=== PATIENT | female | born 1985 | race American Indian/Alaskan Native ===

== ENCOUNTER 2023-10-20 12:38 | Emergency (ER) | payer OTHER ==
[2023-10-20 13:28] LABS: BASOPHILS ABSOLUTE AUTO 0.1 K/mm3 (0.0-0.2); BASOPHILS PERCENT AUTO 0.5 % (0.0-1.0); EOSINOPHILS ABSOLUTE AUTO 0.1 K/mm3 (0.0-0.4); EOSINOPHILS PERCENT AUTO 0.5 % (0.0-6.0); HEMATOCRIT 26.5 % (37.0-47.0); HEMOGLOBIN 9.4 gm/dl (12.0-16.0); IMMATURE GRAN ABSOLUTE AUTO 0.14 K/mm3 (0.00-0.05); IMMATURE GRAN PERCENT AUTO 0.9 % (0.0-0.4); LYMPHOCYTES ABSOLUTE AUTO 0.7 K/mm3 (1.0-4.8); LYMPHOCYTES PERCENT AUTO 4.7 % (24.0-44.0); MEAN CORPUSCULAR HEMOGLOBIN 32.4 pg (28.0-32.0); MEAN CORPUSCULAR HGB CONC 35.5 g/dl (32.0-36.0); MEAN CORPUSCULAR VOLUME 91.4 fl (83.0-99.0); MEAN PLATELET VOLUME 9.8 fl (9.4-12.3); MONOCYTES ABSOLUTE AUTO 1.1 K/mm3 (0.0-0.8); MONOCYTES PERCENT AUTO 7.5 % (0.0-8.0); NEUTROPHILS ABSOLUTE AUTO 12.9 K/mm3 (1.8-7.7); NEUTROPHILS PERCENT AUTO 85.9 % (41.0-71.0); PLATELET COUNT,PLT 163 K/mm3 (150-400); WHITE BLOOD CELL COUNT,WBC 15.02 K/mm3 (3.9-11.3)
[2023-10-20 13:47] LABS: INR 1.9; PROTHROMBIN TIME 19.3 SECONDS (9.7-12.0)
[2023-10-20 13:58] LABS: A/G RATIO 0.2 (1-2); ALBUMIN 1.4 g/dl (3.4-5.0); ANION GAP 13.2 (5-15); BILIRUBIN TOTAL 15.1 mg/dL (0.2-1.0); BUN/CREATININE RATIO 6.7 (14-18); C-REACTIVE PROTEIN 5.91 mg/dL (<0.30); CALCIUM 7.8 mg/dL (8.5-10.1); CREATININE 0.6 mg/dL (0.55-1.02); EST CRCL DRUG DOSING (CG) 122.42 mL/min; PROTEIN TOTAL,TP 7.8 g/dl (6.4-8.2)
[2023-10-20 14:00] LABS: POTASSIUM,K 3.2 mEq/L (3.5-5.1)
[2023-10-20] MEDS: Sodium Chloride 0.9% 1,000 ML IV STA (14:00)
[2023-10-20] MEDS: Ondansetron 4 MG/2 ML SDV IVPUSH ONE (14:00)
[2023-10-20] MEDS: Sodium Chloride 0.9% 10 ML Syringe FLUSH PRN (14:05)
[2023-10-20] MEDS: Morphine 2 MG/ML SYRINGE IVPUSH ONE ×2 (14:07→15:56)
[2023-10-20] MEDS: Sodium Chloride 0.9% 10 ML Syringe FLUSH ONE (14:41)
[2023-10-20] MEDS: Iopamidol 612 MG/ML 100 ML Bottle IVPUSH ONE (14:41)
[2023-10-20 15:14] LABS: APPEARANCE,URINE SLT CLOUDY (Clear); BILIRUBIN,URINE 3+ (Negative); COLOR,URINE ORANGE (Yellow); GLUCOSE,URINE NEGATIVE (Negative); KETONES,URINE NEGATIVE (Negative); LEUKOCYTE ESTERASE,URINE NEGATIVE (Negative); NITRITE,URINE NEGATIVE (Negative); OCCULT BLOOD,URINE TRACE-LYSED (Negative); PROTEIN,URINE 1+ (Negative)
[2023-10-20] MEDS: Lactulose Soln 10 GM/15 ML 30 ML UD Cup PO ONE (15:20)
[2023-10-20 15:30] LABS: BACTERIA,URINE MANY /hpf (FEW); MUCUS,URINE RARE /hpf (FEW)
== END 2023-10-20 16:22 ==
LOC: JD.ED 12:38
DX: K72.00 Acute and subacute hepatic failure without coma (principal)
CPT/HCPCS: 36415; 71045; 74177; 80053; 81001; 82140; 83690; 84703; 85025; 85610; 86140; 86850; 86900; 86901; 93005; 96361; 96374; 96375; 96376; 99285; A9270; J2270; J2405; J3490; J7030; Q9967; 93010